=== PATIENT | female | born 1990 | race Caucasian/White ===

== ENCOUNTER 2017-10-08 19:04 | Outpatient (CLI) | payer OTHER | END 2017-10-08 22:35 | disposition home or self-care (01) | LOC: M LDO 19:04 | DX: O26.893 Other specified pregnancy related conditions, third trimester (principal); Z3A.33 33 weeks gestation of pregnancy | CPT/HCPCS: 59025 ==

== ENCOUNTER 2017-10-09 13:23 | Inpatient (IN) | payer OTHER ==
[2017-10-09] MEDS: PENICILLIN G POTASSIUM IV 2.5 MU in APPROPRIATE DILUENT 1 EA IV (02:00)
[2017-10-09] MEDS: LR 1,000 ML IV ×2 (14:51→15:53)
[2017-10-09 14:53] LABS: APPEARANCE, URINE CLEAR (CLEAR); BACTERIA, URINE AUTO NEGATIVE (NEGATIVE); BILIRUBIN, URINE AUTO NEGATIVE (NEGATIVE); BLOOD, URINE BLOOD 1+ (NEGATIVE); COLOR, URINE COLORLESS (YELLOW); GLUCOSE, URINE (UA) AUTO NEGATIVE (NEGATIVE); KETONE, URINE AUTO NEGATIVE (NEGATIVE); LEUKOCYTE ESTERASE, URINE AUTO NEGATIVE (NEGATIVE); NITRITE, URINE AUTO NEGATIVE (NEGATIVE); PROTEIN, URINE AUTO NEGATIVE (NEGATIVE); RBC, URINE AUTO 0 /HPF (0-3); SQUAMOUS EPITHELIAL CELL UR AU 0 /HPF (0-6); UROBILINOGEN, URINE AUTO 0.2 mg/dL (0.0-2.0); WBC, URINE AUTO 0 /HPF (0-3)
[2017-10-09] MEDS: ACETAMINOPHEN 500 MG TAB PO ×2 (16:36→22:25)
[2017-10-09] MEDS ORDERED: LR 1,000 ML IV (17:05)
[2017-10-09 17:11] LABS: CHLAMYDIA DNA AMPLIFICATION NEGATIVE (NEGATIVE); GC DNA AMPLIFICATION NEGATIVE (NEGATIVE)
[2017-10-09] MEDS: BETAMETHASONE SOLUSPAN 6MG/ML INJ 5ML (J0702) IM (17:29)
[2017-10-09] MEDS: NIFEdipine 10 MG CAP PO ×2 (17:31→18:59)
[2017-10-09] MEDS: INDOMETHACIN 25 MG CAP PO ×2 (17:32→23:31)
[2017-10-09] MEDS: PENICILLIN G POTASSIUM IV 5 MU in D5W MINI-BAG PLUS 100 ML IV (17:53)
[2017-10-09] MEDS: ONDANSETRON 4MG/2ML VIAL (J2405) IV (18:05)
[2017-10-09 18:07] LABS: HEMOGLOBIN 11.7 g/dl (12.0-15.5); MEAN CORPUSCULAR HEMOGLOBIN 31.5 pg (27.0-33.0); MEAN CORPUSCULAR HGB CONC 35.5 g/dl (32.0-36.5); MEAN CORPUSCULAR VOLUME 88.9 fl (80.0-96.0); PLATELET COUNT, AUTOMATED 151 10^3/uL (150-450); RED BLOOD COUNT 3.71 10^6/uL (4.00-5.40)
[2017-10-09] MEDS ORDERED: diphenhydrAMINE 25 MG CAP As Ordered (20:59)
[2017-10-09] MEDS: diphenhydrAMINE 50 MG CAP PO (21:11)
[2017-10-10] MEDS: PENICILLIN G POTASSIUM IV 2.5 MU in APPROPRIATE DILUENT 1 EA IV ×5 (06:14→18:05)
[2017-10-10] MEDS: INDOMETHACIN 25 MG CAP PO ×3 (06:15→18:06)
[2017-10-10] MEDS: ACETAMINOPHEN 500 MG TAB PO ×2 (06:31→14:09)
[2017-10-10] MEDS: ONDANSETRON 4MG/2ML VIAL (J2405) IV (06:32)
[2017-10-10] MEDS: LR 1,000 ML IV ×3 (07:00→17:12)
[2017-10-10] MEDS: DOCUSATE SODIUM 100 MG CAP PO (09:08)
[2017-10-10] MEDS: PRENATAL VITAMINS CHEWABLE TABLET PO (09:08)
[2017-10-10] MEDS ORDERED: NIFEdipine 10 MG CAP PO (10:15)
[2017-10-10] MEDS: NIFEdipine 10 MG CAP PO ×3 (11:58→22:30)
[2017-10-10] MEDS: BETAMETHASONE SOLUSPAN 6MG/ML INJ 5ML (J0702) IM (17:30)
[2017-10-10] MEDS ORDERED: diphenhydrAMINE 25 MG CAP As Ordered (20:51)
[2017-10-10] MEDS: diphenhydrAMINE 50 MG CAP PO (20:54)
[2017-10-11] MEDS: INDOMETHACIN 25 MG CAP PO ×3 (00:29→12:05)
[2017-10-11] MEDS: PENICILLIN G POTASSIUM IV 2.5 MU in APPROPRIATE DILUENT 1 EA IV ×4 (02:00→14:01)
[2017-10-11] MEDS: NIFEdipine 10 MG CAP PO ×2 (05:37→12:08)
[2017-10-11] MEDS: LR 1,000 ML IV ×2 (09:21→22:44)
[2017-10-11] MEDS: PRENATAL VITAMINS CHEWABLE TABLET PO (09:54)
[2017-10-11] MEDS: DOCUSATE SODIUM 100 MG CAP PO (09:55)
[2017-10-11] MEDS: ACETAMINOPHEN 500 MG TAB PO (15:10)
[2017-10-11] MEDS: ONDANSETRON 4MG/2ML VIAL (J2405) IV ×2 (16:51→23:38)
[2017-10-11] MEDS: BUTORPHANOL 2 MG/ML INJ (J0595) IV (23:38)
[2017-10-12] MEDS: PENICILLIN G POTASSIUM IV 2.5 MU in APPROPRIATE DILUENT 1 EA IV ×2 (02:40→06:43)
[2017-10-12] MEDS ORDERED: FENTANYL 2MCG/ML ROPIVACAINE 0.2% IN 0.9% NACL 200ML IVBAG As Ordered (05:10)
[2017-10-12] MEDS ORDERED: FENTANYL/ROPIVACAINE/NACL BAG 200 ML EPIDURAL (06:00)
[2017-10-12] MEDS ORDERED: NALOXONE INJ 0.4 MG/1 ML VIAL (J2310) IV (06:00)
[2017-10-12] MEDS ORDERED: REFRIGERATOR IV KEYS XX (06:00)
[2017-10-12] MEDS ORDERED: ONDANSETRON 4MG/2ML VIAL (J2405) IV (06:00)
[2017-10-12] MEDS ORDERED: EPIDURAL/PCA KEYS XX (06:00)
[2017-10-12] MEDS ORDERED: ePHEDrine SULFATE 25 MG/5 ML(5MG/ML) SYRINGE IV (06:00)
[2017-10-12] MEDS ORDERED: EPIDURAL COMMENT XX (06:00)
[2017-10-12] MEDS ORDERED: diphenhydrAMINE INJ 50MG/ML VIAL (J1200) IV (06:00)
[2017-10-12] MEDS: ONDANSETRON 4MG/2ML VIAL (J2405) IV (06:43)
[2017-10-12] MEDS: LR 1,000 ML IV (08:25)
[2017-10-12] MEDS ORDERED: OXYTOCIN 30 UNITS IN 0.9% NaCl 500ML IV BAG (J2590) As Ordered (08:56)
[2017-10-12] MEDS: OXYTOCIN DRIP 30 UNITS in APPROPRIATE DILUENT 1 EA IV (12:41)
[2017-10-12] MEDS ORDERED: DIBUCAINE 1% OINTMENT 30GM TOP (12:45)
[2017-10-12] MEDS ORDERED: ANUSOL HC CREAM 30GM TOP (12:45)
[2017-10-12] MEDS: IBUPROFEN 600 MG TAB PO ×2 (14:30→23:49)
[2017-10-13] MEDS: FERROUS SULFATE 325MG TAB PO (09:00)
[2017-10-13] MEDS: IBUPROFEN 600 MG TAB PO (18:06)
[2017-10-14] MEDS: FERROUS SULFATE 325MG TAB PO (08:32)
[2017-10-14] MEDS: MEASLES,MUMPS,RUBELLA VACCINE INJ (MMR-II) (90707) SC (09:50)
== END 2017-10-14 11:15 | disposition home or self-care (01) | DRG 775 ==
LOC: M LDO 13:23 → M OBS 10-12 15:08 → M LDI 17:22
PROC: 10E0XZZ Delivery of Products of Conception, External Approach (ICD-10-PCS; principal; 2017-10-12)
PROC: 0KQM0ZZ Repair Perineum Muscle, Open Approach (ICD-10-PCS; 2017-10-12)
DX: O60.14X0 Preterm labor third trimester with preterm delivery third trimester, not applicable or unspecified (principal); O70.1 Second degree perineal laceration during delivery; Z37.0 Single live birth; Z3A.33 33 weeks gestation of pregnancy

== ENCOUNTER 2018-05-28 06:36 | Emergency (ER) | payer OTHER ==
[~2018-05-28] VITALS: Ht 154.9 cm; Wt 68.2 kg
[~2018-05-28 06:36] MED LIST: BENA25CA4 PO; COLA100C5 PO; FOLI800C PO; IBUP-1022 PO; MAPA500T2 PO; PRENTAB9 PO; SLOW160T12 PO; VITA200016 PO
[2018-05-28] MEDS ORDERED: NAPR-50 PO (07:06)
[2018-05-28] MEDS ORDERED: CYCL10TA PO (07:06)
[2018-05-28] MEDS ORDERED: KETOROLAC 60 MG/2 ML VIAL (J1885) IM ONE (07:15)
[2018-05-28 07:39] VITALS: BP 122/77
[2018-05-28] MEDS ORDERED: CALC1CHW PO (07:52)
[2018-05-28] MEDS ORDERED: ZOLO25TA PO (07:52)
[2018-05-28] MEDS ORDERED: birth control PO (07:52)
== END 2018-05-28 07:57 | disposition home or self-care (01) ==
LOC: M ED 06:36
DX: M54.12 Radiculopathy, cervical region (principal); M62.838 Other muscle spasm; D64.9 Anemia, unspecified; F99 Mental disorder, not otherwise specified; Z79.3 Long term (current) use of hormonal contraceptives; Z79.899 Other long term (current) drug therapy; Z91.040 Latex allergy status; Z88.5 Allergy status to narcotic agent
CPT/HCPCS: 96372; 99283; J1885

== ENCOUNTER → 2018-09-13 | Outpatient (CLI) | payer OTHER ==
[~2018-09-13] MED LIST changes: +CALC1CHW PO; +CYCL10TA PO; +NAPR-837 PO; +ZOLO25TA PO; +birth control PO
--- NOTE | 2018-09-13 11:05 | REP ---
REASON: Persistent cough. PRIORS: None. FINDINGS: The superior mediastinal structures are midline. The cardiac silhouette is unremarkable in size, shape, and position. The diaphragmatic surfaces of the lungs are regular, and the costophrenic angles are clear. The pulmonary hubbard are clear. The imaged osseous structures are intact. IMPRESSION: There is no acute cardiopulmonary disease. If the patient is experiencing a chronic cough consider chest CT if clinically relevant. Electronically Signed by Checo Solitario DO 09/13/2018 12:33 P
== END ==
LOC: M LRY 10:34
PROVIDERS: ATTEND Nurse Practitioner Family
DX: R05 Cough (principal)
CPT/HCPCS: 71046; 81025; G0463

== ENCOUNTER 2019-09-26 01:05 | Emergency (ER) | payer OTHER ==
[~2019-09-26] VITALS: Ht 154.9 cm; Wt 75.3 kg
[~2019-09-26 01:05] MED LIST changes: +CYCL-707 PO; -CYCL10TA PO
[2019-09-26 01:06] VITALS: BP 131/72
[2019-09-26] MEDS ORDERED: SERT-138 PO (01:14)
[2019-09-26] MEDS ORDERED: HYDR50TA70 (01:14)
[2019-09-26] MEDS ORDERED: LORazepam 2 MG/ML VIAL IM STA (01:30)
[2019-09-26] MEDS ORDERED: LORazepam 2 MG/ML VIAL As Ordered ONE (01:33)
== END 2019-09-26 02:11 | disposition home or self-care (01) ==
LOC: M ED 01:05
DX: G25.3 Myoclonus (principal); Z88.5 Allergy status to narcotic agent; Z91.040 Latex allergy status; D64.9 Anemia, unspecified; F41.9 Anxiety disorder, unspecified; Z79.899 Other long term (current) drug therapy
CPT/HCPCS: 99283; J2060

== ENCOUNTER 2020-04-12 09:40 | Emergency (ER) | payer OTHER ==
[~2020-04-12] VITALS: Ht 154.9 cm; Wt 85.5 kg
[~2020-04-12 09:40] MED LIST changes: +HYDR50TA70; +SERT-138 PO
[2020-04-12] MEDS ORDERED: PREN27TA3 PO (09:55)
[2020-04-12] MEDS ORDERED: VITA50TA7 PO (09:55)
[2020-04-12 10:23] LABS: BASO % 0.4 % (0.0-1.0); EOS # 0.1 10^3/uL (0.0-0.5); EOS % 0.8 % (0.0-3.0); HEMATOCRIT 34.7 % (36.0-47.0); HEMOGLOBIN 11.5 g/dl (12.0-15.5); LYMPH % 23.6 % (24.0-44.0); MEAN CORPUSCULAR HEMOGLOBIN 30.3 pg (27.0-33.0); MEAN CORPUSCULAR HGB CONC 33.1 g/dl (32.0-36.5); MEAN CORPUSCULAR VOLUME 91.6 fl (80.0-96.0); MONO # 0.5 10^3/uL (0.0-0.8); NEUTROPHILS # 5.7 10^3/uL (1.5-8.5); PLATELET COUNT, AUTOMATED 158 10^3/uL (150-450); RED BLOOD COUNT 3.79 10^6/uL (4.00-5.40); WHITE BLOOD COUNT 8.3 10^3/uL (4.0-10.0)
[2020-04-12 10:34] LABS: APPEARANCE, URINE HAZY (CLEAR); BACTERIA, URINE AUTO 2+ (NEGATIVE); BILIRUBIN, URINE AUTO NEGATIVE (NEGATIVE); BLOOD, URINE BLOOD NEGATIVE (NEGATIVE); COLOR, URINE YELLOW (YELLOW); GLUCOSE, URINE (UA) AUTO NEGATIVE (NEGATIVE); KETONE, URINE AUTO NEGATIVE (NEGATIVE); LEUKOCYTE ESTERASE, URINE AUTO NEGATIVE (NEGATIVE); MUCUS, URINE SMALL (NEGATIVE); NITRITE, URINE AUTO NEGATIVE (NEGATIVE); PROTEIN, URINE AUTO NEGATIVE (NEGATIVE); RBC, URINE AUTO 1 /HPF (0-3); SPECIFIC GRAVITY URINE AUTO 1.005 (1.002-1.035); SQUAMOUS EPITHELIAL CELL UR AU 14 /HPF (0-6); UROBILINOGEN, URINE AUTO 0.2 mg/dL (0.0-2.0); WBC, URINE AUTO 1 /HPF (0-3)
[2020-04-12 10:41] LABS: BLOOD UREA NITROGEN 9 MG/DL (7-18); CALCIUM LEVEL 8.9 MG/DL (8.5-10.1); CARBON DIOXIDE LEVEL 22 MEQ/L (21-32); CHLORIDE LEVEL 106 MEQ/L (98-107); CREATININE FOR GFR 0.46 MG/DL (0.55-1.30); GLOMERULAR FILTRATION RATE > 60.0 (>60); GLUCOSE, FASTING 74 MG/DL (70-100); SODIUM LEVEL 137 MEQ/L (136-145)
--- NOTE | 2020-04-12 10:57 | REP ---
INDICATION: 19.6 wks preg with abd cramping COMPARISON: None. TECHNIQUE: Transabdominal obstetrical ultrasound with color Doppler evaluation. FINDINGS: Examination demonstrates a single live intrauterine in transverse presentation. motion is identified by technologist. Placenta is noted posterior and grade 0 without evidence for placenta previa or abruption. Amniotic fluid volume is normal. Cervix measures 3.3 cm in length and appears closed. JEVON: 16.9 cm. FHR equals 138 beats per minute. IMPRESSION: Single live intrauterine in transverse lie. No gross abnormalities are identified. <Electronically signed by Sterling Chase > 04/12/20 [id number]
[2020-04-12 13:00] LABS: CHLAMYDIA DNA AMPLIFICATION NEGATIVE (NEGATIVE); GC DNA AMPLIFICATION NEGATIVE (NEGATIVE)
[2020-04-12 13:26] VITALS: BP 118/69
== END 2020-04-12 13:27 | disposition home or self-care (01) ==
LOC: M ED 09:40
DX: O26.892 Other specified pregnancy related conditions, second trimester (principal); R10.9 Unspecified abdominal pain; Z88.5 Allergy status to narcotic agent; Z91.040 Latex allergy status; Z79.899 Other long term (current) drug therapy; Z3A.19 19 weeks gestation of pregnancy

== ENCOUNTER 2020-05-27 10:29 | Outpatient (CLI) | payer OTHER ==
[~2020-05-27] VITALS: Ht 154.9 cm; Wt 90.6 kg
[~2020-05-27 10:29] MED LIST changes: +PREN27TA3 PO; +PYRI50TA41 PO
[2020-05-27 10:50] VITALS: BP 132/71
[2020-05-27 11:55] LABS: HEMATOCRIT 29.7 % (36.0-47.0); MEAN CORPUSCULAR HEMOGLOBIN 30.6 pg (27.0-33.0); MEAN CORPUSCULAR HGB CONC 33.7 g/dl (32.0-36.5); MEAN CORPUSCULAR VOLUME 90.8 fl (80.0-96.0); PLATELET COUNT, AUTOMATED 153 10^3/uL (150-450); RED BLOOD COUNT 3.27 10^6/uL (4.00-5.40); WHITE BLOOD COUNT 8.1 10^3/uL (4.0-10.0)
[2020-05-27 12:10] LABS: INR 0.96
[2020-05-27 12:11] LABS: PARTIAL THROMBOPLASTIN TIME 33.3 SECONDS (24.2-38.5)
[2020-05-27 12:45] VITALS: BP 145/73
--- NOTE | 2020-05-27 15:48 | IPNPDOC ---
Text Note Date of Service The patient was seen on 05/27/20. NOTE 29yo at 26+2wks presenting for c/o abdominal pain that started after her 2.5yo child ran into her abdomen at 0815 this AM. She reports she was sitting on the couch and he was running into her lap as a game but missed and hit her abdomen with his head at the navel. She reports having onset of cramping pelvic pain soon after that did not respond to shower or hydration. She denies any VB, abnml vaginal discharge, LOF, DFM, or regular ctx's. OB PROBLEM LIST: Anemia of on iron supplementation daily Obesity History of Vitals: normotensive on arrival, afebrile NST: appropriate for gestational age [place]: quiet - no ctx's or uterine irritability seen PE: General: well-appearing, sitting upright in bed in NAD, conversing in full sentences HEENT: NC/AT, airway patent and self-maintained RESP: no exaggerated respiratory effort appreciated CARDS: well-perfused ABD: soft, nontender, gravid, no ecchymosis or skin abnormalities appreciated FUNDUS: soft, S=D : deferred due to no issues Ext: no edema noted Labs: abruption labs negative but noted to have mild anemia RADS: bedside TAUS revealed SIUP in breech presentation, +FM, +FCA, MVP 7.4cm, posterior placenta without retroplacental lucency noted A/P: 29yo at 26+2wks presenting for c/o abdominal pain after child hit her abdomen. Patient's pain improved significantly with PO hydration and expectant mgmt in triage. Reassuring clinical maternal and status after 4 hours of observation/monitoring. Abruption labs normal. Limited U/S reassuring. Patient noted to have 1 mild-ranging BP while under observation but asymptomatic. -Patient counseled on po hydration -Tylenol PRN -Counseled to increase iron supplementation to BID and to take with Vitamin C for anemia -Counseled on modified bedrest for next 24hrs -Patient to f/u for COB appt and Fowler injection as scheduled in 48hrs -Patient counseled on pain, bleeding, and PTL precautions All questions answered. Med rec done. VS,Fishbone, I+O VS, Fishbone, I+O Laboratory Tests 05/27/20 11:36 Vital Signs Date Time Temp Pulse Resp B/P (MAP) Pulse Ox O2 Delivery O2 Flow Rate FiO2 05/27/20 12:45 88 18 145/73 (97) 05/27/20 10:50 98.5 FREEMAN ROMERO DO May 27, 2020 15:48
== END 2020-05-27 13:53 | disposition home or self-care (01) ==
LOC: M LDO 10:29
DX: O26.892 Other specified pregnancy related conditions, second trimester (principal); R10.30 Lower abdominal pain, unspecified; Z3A.26 26 weeks gestation of pregnancy; O99.012 Anemia complicating pregnancy, second trimester; D64.9 Anemia, unspecified; O99.212 Obesity complicating pregnancy, second trimester; E66.9 Obesity, unspecified; O32.1XX0 Maternal care for breech presentation, not applicable or unspecified; Z79.899 Other long term (current) drug therapy; Z88.5 Allergy status to narcotic agent; Z88.8 Allergy status to other drugs, medicaments and biological substances; Z91.040 Latex allergy status
CPT/HCPCS: 36415; 76815; 85027; 85384; 85460; 85610; 85730; G0378; G0463